=== PATIENT | male | born 1935 | race Caucasian/White ===

== ENCOUNTER → 2017-01-25 | Outpatient (CLI) | payer MEDICARE ==
[~2017-01-25] MED LIST: ASPIRIN325 MG PO; AUGMENTIN 125 M1 CTB PO; BACTRIM DS 8001 TA1 PO; BUMETANIDE1 MG PO; CENTRUM1 TAB PO; CEPHALEXIN500 M1 PO; CLINDAMYCIN HC150 MG PO; Diltiazem180 MG PO; LIPITOR10 MG PO; LOPRESSOR25 MG PO; METOPROLOL25 MG PO; NORCO 5-325 TA1 EACH PO; NORVASC10 MG PO; PACERONE200 MG PO; PLAVIX75 MG PO; PREDNISONE10 M1 PO; PREDNISONE20 MG PO; VITAMIN D31000 IU PO; WARFARIN SOD5 MG PO
== END | disposition home or self-care (01) ==
LOC: RAD 10:39
DX: M25.471 Effusion, right ankle (principal)

== ENCOUNTER → 2017-09-07 | Outpatient (CLI) | payer MEDICARE | END | disposition home or self-care (01) | LOC: RAD 16:34 | DX: M79.642 Pain in left hand (principal); R22.32 Localized swelling, mass and lump, left upper limb ==

== ENCOUNTER 2017-12-11 03:22 | Emergency (ER) | payer MEDICARE ==
[~2017-12-11] VITALS: Ht 170.1 cm; Wt 76.2 kg
[2017-12-11 04:02] LABS: ABG BASE EXCESS 0.4 mmol/L (-2.0-2.0); ABG HCO3 25.7 mmol/l (22-26); ABG O2 SATURATION 87.1 % (95-97); ARTERIAL BLOOD GAS PCO2 44.5 mmHg (35-45); ARTERIAL BLOOD GAS PH 7.376 (7.35-7.45); ARTERIAL BLOOD GAS PO2 54.3 mmHg (80-90)
[2017-12-11 06:07] LABS: BASO % 0.1 % (0.0-1.0); EOS % 0.1 % (1.0-4.0); HEMATOCRIT 43.5 % (42.0-52.0); HEMOGLOBIN 13.8 g/dl (14.0-18.0); LYMPH # 0.5 10*3/uL (1.3-4.4); LYMPH % 3.6 % (27.0-41.0); MEAN CELL VOLUME 93.5 fl (80.0-94.0); MEAN CORPUSCULAR HGB 29.7 pg (27.0-31.0); MEAN CORPUSCULAR HGB CONC 31.7 g/dl (33.0-37.0); MEAN PLATELET VOLUME 10.7 fl (9.6-12.3); MONO # 0.8 10*3/uL (0.1-1.0); MONO % 5.5 % (3.0-9.0); NEUT # 13.6 10*3/uL (2.3-7.9); NEUT % 89.6 % (47.0-73.0); NUCLEATED RED BLOOD CELL 0.2 % (0.0-0.0); PLATELET COUNT AUTOMATED 389 10*3/uL (130-400); RED BLOOD COUNT 4.65 10*6/uL (4.50-5.90); RED CELL DISTRI WIDTH 16.8 % (0-14.5); WHITE BLOOD COUNT 15.2 10*3/uL (4.8-10.8)
[2017-12-11 06:23] LABS: ACT PARTIAL THROMBO TIME 34.3 SECONDS (20.8-31.5)
[2017-12-11 06:26] LABS: INTERNATIONAL NORM RATIO 5.5 (2.0-3.5)
[2017-12-11 06:35] LABS: ALBUMIN 3.5 gm/dl (3.1-4.5); ALKALINE PHOSPHATASE 88 U/L (45-117); BUN 36 mg/dl (7-24); CHLORIDE 108 mmol/L (98-107); CREATININE 1.29 mg/dL (0.70-1.30); POTASSIUM 3.8 mmol/L (3.5-5.1); SGOT/AST 22 IU/L (3-35); SGPT/ALT 48 U/L (12-78); SODIUM 143 mmol/L (136-145); TOTAL PROTEIN 6.4 gm/dL (6.4-8.2)
[2017-12-11 06:40] LABS: TROPONIN I < 0.015 ng/ml (<0.045)
[2017-12-11] MEDS ORDERED: BUMETANIDE0.5 MG PO (06:49)
[2017-12-11] MEDS ORDERED: COUMADIN5 M2 PO (06:50)
[2017-12-11] MEDS ORDERED: Diltiazem180 MG PO (06:51)
[2017-12-11] MEDS ORDERED: 'zithromax250 MG PO (06:51)
[2017-12-11] MEDS ORDERED: LOPRESSOR25 MG PO (06:52)
[2017-12-11] MEDS ORDERED: ASPIRIN ADULT L81 M1 PO (06:53)
[2017-12-11] MEDS ORDERED: HYDREA500 M1 PO (06:54)
[2017-12-11] MEDS ORDERED: ALLOPURINOL300 MG PO (06:55)
== END 2017-12-11 16:14 | disposition short-term general hospital (02) ==
LOC: ED 03:22
PROVIDERS: Student in an Organized Health Care Education/Training Program
DX: J44.1 Chronic obstructive pulmonary disease with (acute) exacerbation (principal); Z90.49 Acquired absence of other specified parts of digestive tract; Z88.5 Allergy status to narcotic agent; Z88.6 Allergy status to analgesic agent; Z79.82 Long term (current) use of aspirin; Z79.01 Long term (current) use of anticoagulants; Z79.899 Other long term (current) drug therapy; Z86.73 Personal history of transient ischemic attack (TIA), and cerebral infarction without residual deficits

== ENCOUNTER 2018-04-02 16:51 | Inpatient (IN) | payer MEDICARE ==
[~2018-04-02] VITALS: Ht 171.4 cm; Wt 76.7 kg
[~2018-04-02 16:51] MED LIST changes: +'zithromax250 MG PO; +ALLOPURINOL300 MG PO; +ASPIRIN ADULT L81 M1 PO; +BUMETANIDE0.5 MG PO; +COUMADIN5 M2 PO; +HYDREA500 M1 PO
[2018-04-02 16:52] VITALS: BP 152/58
[2018-04-02 17:51] LABS: BASO # 0.1 10*3/uL (0.0-0.1); BASO % 0.6 % (0.0-1.0); EOS # 0.1 10*3/uL (0.0-0.4); HEMATOCRIT 32.6 % (42.0-52.0); HEMOGLOBIN 9.6 g/dl (14.0-18.0); LYMPH # 1.3 10*3/uL (1.3-4.4); LYMPH % 11.6 % (27.0-41.0); MEAN CELL VOLUME 92.1 fl (80.0-94.0); MEAN CORPUSCULAR HGB 27.1 pg (27.0-31.0); MEAN CORPUSCULAR HGB CONC 29.4 g/dl (33.0-37.0); MEAN PLATELET VOLUME 10.3 fl (9.6-12.3); MONO # 0.9 10*3/uL (0.1-1.0); MONO % 8.1 % (3.0-9.0); NEUT # 8.6 10*3/uL (2.3-7.9); NUCLEATED RED BLOOD CELL 0.2 % (0.0-0.0); PLATELET COUNT AUTOMATED 417 10*3/uL (130-400); RED BLOOD COUNT 3.54 10*6/uL (4.50-5.90); RED CELL DISTRI WIDTH 18.1 % (0-14.5); WHITE BLOOD COUNT 11.2 10*3/uL (4.8-10.8)
[2018-04-02 18:03] LABS: ACT PARTIAL THROMBO TIME 48.6 SECONDS (20.8-31.5); INTERNATIONAL NORM RATIO 4.1 (2.0-3.5)
[2018-04-02 18:10] LABS: ALBUMIN 2.5 gm/dl (3.1-4.5); ALKALINE PHOSPHATASE 80 U/L (45-117); BUN 30 mg/dl (7-24); CHLORIDE 106 mmol/L (98-107); CREATININE 1.58 mg/dL (0.70-1.30); POTASSIUM 5.2 mmol/L (3.5-5.1); SGOT/AST 9 IU/L (3-35); SGPT/ALT 14 U/L (12-78); SODIUM 144 mmol/L (136-145); TOTAL PROTEIN 5.7 gm/dL (6.4-8.2)
[2018-04-02 18:11] LABS: TROPONIN I < 0.015 ng/ml (<0.045)
[2018-04-02 18:20] VITALS: BP 149/57
[2018-04-02 19:07] VITALS: BP 108/71
[2018-04-02 20:12] LABS: BILIRUBIN NEGATIVE (NEGATIVE); BLOOD NEGATIVE (NEGATIVE); CLARITY CLEAR (CLEAR); COLOR YELLOW (YELLOW); GLUCOSE NEGATIVE (NEGATIVE); KETONE NEGATIVE (NEGATIVE); LEUKO ESTERASE NEGATIVE (NEGATIVE); NITRITE NEGATIVE (NEGATIVE); PH 5.5 (5.0-9.0); SPECIFIC GRAVITY <= 1.005 (1.005-1.030); UROBILINOGEN 0.2 E.U./dl (0.2-1.0)
[2018-04-02 20:23] LABS: RBC 0-2 rbc/hpf (0-2)
[2018-04-02 20:36] VITALS: BP 157/76
[2018-04-02 20:53] VITALS: BP 177/68
[2018-04-02] MEDS ORDERED: BUMETANIDE1 MG PO (21:41)
[2018-04-02] MEDS ORDERED: CALCIUM 600 +1 EA10 PO (21:43)
[2018-04-02] MEDS ORDERED: DILTIAZEM 24HR180 MG PO (21:46)
[2018-04-02] MEDS ORDERED: LEVALBUTER0.63 MG/4 INH (21:48)
[2018-04-02] MEDS ORDERED: Synthroid,Levo25 MCG PO (21:51)
[2018-04-02] MEDS ORDERED: K-TAB20 MEQ PO (21:53)
[2018-04-02] MEDS ORDERED: Coumadin3 MG PO (21:54)
[2018-04-02] MEDS ORDERED: DUONEB 3 MG/3 ML3 M1 INH (21:56)
[2018-04-02] MEDS ORDERED: TYLENOL325 M2 PO (21:57)
[2018-04-02] MEDS ORDERED: OXYGEN NAS (21:58)
[2018-04-03] VITALS: BP 130/66
[2018-04-03 06:33] LABS: BASO # 0.1 10*3/uL (0.0-0.1); BASO % 0.6 % (0.0-1.0); EOS # 0.1 10*3/uL (0.0-0.4); EOS % 0.9 % (1.0-4.0); HEMATOCRIT 31.3 % (42.0-52.0); HEMOGLOBIN 9.4 g/dl (14.0-18.0); LYMPH % 9.9 % (27.0-41.0); MEAN CORPUSCULAR HGB 27.3 pg (27.0-31.0); MEAN PLATELET VOLUME 10.6 fl (9.6-12.3); MONO # 0.9 10*3/uL (0.1-1.0); MONO % 8.4 % (3.0-9.0); NEUT # 8.1 10*3/uL (2.3-7.9); NEUT % 78.5 % (47.0-73.0); NUCLEATED RED BLOOD CELL 0.2 % (0.0-0.0); PLATELET COUNT AUTOMATED 403 10*3/uL (130-400); RED BLOOD COUNT 3.44 10*6/uL (4.50-5.90); RED CELL DISTRI WIDTH 17.9 % (0-14.5); WHITE BLOOD COUNT 10.3 10*3/uL (4.8-10.8)
[2018-04-03 07:06] LABS: ALBUMIN 2.5 gm/dl (3.1-4.5); CREATININE 1.37 mg/dL (0.70-1.30); FREE T4 1.15 ng/dl (0.76-1.46); PHOSPHOROUS 2.8 mg/dL (2.5-4.9); TOTAL PROTEIN 5.6 gm/dL (6.4-8.2)
[2018-04-03 07:08] LABS: ACT PARTIAL THROMBO TIME 47.5 SECONDS (20.8-31.5); INTERNATIONAL NORM RATIO 3.2 (2.0-3.5)
[2018-04-03 07:20] LABS: POTASSIUM 4.1 mmol/L (3.5-5.1)
[2018-04-03 08:00] VITALS: BP 121/50
[2018-04-03 08:28] LABS: THYROID STIM HORMONE (HS) 4.9 uIU/ml (0.358-4.75)
[2018-04-03 12:00] VITALS: BP 95/52
[2018-04-03 16:00] VITALS: BP 143/70
[2018-04-03 20:06] VITALS: BP 154/54
[2018-04-04] VITALS: BP 153/43
[2018-04-04 06:50] LABS: BASO # 0.1 10*3/uL (0.0-0.1); BASO % 0.4 % (0.0-1.0); EOS # 0.1 10*3/uL (0.0-0.4); EOS % 0.8 % (1.0-4.0); HEMATOCRIT 33.8 % (42.0-52.0); HEMOGLOBIN 10.1 g/dl (14.0-18.0); LYMPH # 0.7 10*3/uL (1.3-4.4); LYMPH % 4.4 % (27.0-41.0); MEAN CELL VOLUME 90.6 fl (80.0-94.0); MEAN CORPUSCULAR HGB 27.1 pg (27.0-31.0); MEAN CORPUSCULAR HGB CONC 29.9 g/dl (33.0-37.0); MEAN PLATELET VOLUME 10.6 fl (9.6-12.3); MONO # 0.7 10*3/uL (0.1-1.0); MONO % 4.4 % (3.0-9.0); NEUT # 13.8 10*3/uL (2.3-7.9); NEUT % 88.6 % (47.0-73.0); NUCLEATED RED BLOOD CELL 0.2 % (0.0-0.0); PLATELET COUNT AUTOMATED 424 10*3/uL (130-400); RED BLOOD COUNT 3.73 10*6/uL (4.50-5.90); RED CELL DISTRI WIDTH 18.2 % (0-14.5); WHITE BLOOD COUNT 15.6 10*3/uL (4.8-10.8)
[2018-04-04 07:18] LABS: CREATININE 1.89 mg/dL (0.70-1.30); INTERNATIONAL NORM RATIO 3.3 (2.0-3.5); PHOSPHOROUS 3.7 mg/dL (2.5-4.9); POTASSIUM 4.7 mmol/L (3.5-5.1)
[2018-04-04 08:00] VITALS: BP 129/67
[2018-04-04 12:00] VITALS: BP 144/42
[2018-04-04 16:00] VITALS: BP 148/49
[2018-04-04] MEDS ORDERED: CEFDINIR300 MG PO (16:53)
[2018-04-04] MEDS ORDERED: DOXYCYCLINE MO100 M1 PO (16:53)
== END 2018-04-04 18:20 | disposition home or self-care (01) | DRG 682 ==
LOC: ED 16:51 → EDHOLD 18:53 → 5E 18:53
PROVIDERS: Emergency Medicine; Internal Medicine
DX: N17.0 Acute kidney failure with tubular necrosis (principal); E43 Unspecified severe protein-calorie malnutrition; I50.33 Acute on chronic diastolic (congestive) heart failure; E87.2 Acidosis; J96.10 Chronic respiratory failure, unspecified whether with hypoxia or hypercapnia; D68.9 Coagulation defect, unspecified; E87.5 Hyperkalemia; I48.91 Unspecified atrial fibrillation; I13.0 Hypertensive heart and chronic kidney disease with heart failure and stage 1 through stage 4 chronic kidney disease, or unspecified chronic kidney disease; L03.113 Cellulitis of right upper limb; Z66 Do not resuscitate; R73.9 Hyperglycemia, unspecified; Z51.5 Encounter for palliative care; I73.9 Peripheral vascular disease, unspecified; N40.0 Benign prostatic hyperplasia without lower urinary tract symptoms; N18.3 Chronic kidney disease, stage 3 (moderate); S51.811A Laceration without foreign body of right forearm, initial encounter; X58.XXXA Exposure to other specified factors, initial encounter; M10.9 Gout, unspecified; Z68.26 Body mass index [BMI] 26.0-26.9, adult; D47.3 Essential (hemorrhagic) thrombocythemia; D64.9 Anemia, unspecified; E66.3 Overweight; I49.5 Sick sinus syndrome; E78.5 Hyperlipidemia, unspecified; E03.9 Hypothyroidism, unspecified; E55.9 Vitamin D deficiency, unspecified; I45.10 Unspecified right bundle-branch block; J44.9 Chronic obstructive pulmonary disease, unspecified; Z88.8 Allergy status to other drugs, medicaments and biological substances; Z79.01 Long term (current) use of anticoagulants; Z99.81 Dependence on supplemental oxygen; Z79.899 Other long term (current) drug therapy; Z86.73 Personal history of transient ischemic attack (TIA), and cerebral infarction without residual deficits; Z79.82 Long term (current) use of aspirin; Z90.49 Acquired absence of other specified parts of digestive tract; Z95.828 Presence of other vascular implants and grafts; Z82.49 Family history of ischemic heart disease and other diseases of the circulatory system; Y93.89 Activity, other specified; Y92.89 Other specified places as the place of occurrence of the external cause; Y99.8 Other external cause status